=== PATIENT | female | born 1940 | race Two or more races ===

== ENCOUNTER 2021-08-01 09:30 | Emergency (ER) | payer MEDICARE ==
[~2021-08-01] VITALS: Ht 152.4 cm; Wt 68.9 kg
--- NOTE | 2021-08-01 09:32 | NUR ---
AT BEDSIDE FOR EVAL.
--- NOTE | 2021-08-01 09:35 | NUR ---
[id number] FOR NOTED AMS. 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 BG 170 IN THE FIELD. ATTACHED TO THE MONITOR. WILL CONTINUE TO MONITOR THE PATIENT.
--- NOTE | 2021-08-01 09:35 | NUR ---
IV LINE ESTABLISHED BLOOD DRAWN AND SENT TO LAB.
--- NOTE | 2021-08-01 09:36 | NUR ---
BLOOD SUGAR 178
--- NOTE | 2021-08-01 09:41 | NUR ---
PT IS WHEELED TO CT SCAN VIA STROKE PROTOCOL
--- NOTE | 2021-08-01 09:53 | NUR ---
DR. GODWIN, [facility] ON THE PHONE WITH DR. BEYER.
[2021-08-01] MEDS ORDERED: IV NS 0.9% 1,000 ML BAG IV ONE (10:00)
[2021-08-01 10:01] LABS: BASOPHILS # (AUTO) 0.2 K/uL (0.0-0.2); EOSINOPHILS % (AUTO) 0.7 % (0.0-6.0); HEMATOCRIT 38 % (33-45); HEMOGLOBIN 12.1 g/dL (11.5-14.8); LYMPHOCYTES # (AUTO) 2.1 K/uL (0.8-4.8); LYMPHOCYTES % (AUTO) 21.6 % (20.0-44.0); MEAN CORPUSCULAR HGB CONC 32 g/dl (31.0-36.0); MEAN CORPUSCULAR VOLUME 89 fL (82-100); MONOCYTES # (AUTO) 0.9 K/uL (0.1-1.30); MONOCYTES % (AUTO) 9.5 % (2.0-12.0); NEUTROPHILS # (AUTO) 6.6 K/uL (1.8-8.9); NEUTROPHILS % (AUTO) 66.2 % (43.0-81.0); PLATELET COUNT (AUTO) 134 K/uL (150-450); RED BLOOD CELL COUNT(AUTO) 4.28 MIL/uL (4.0-5.2); WHITE BLOOD COUNT (AUTO) 9.9 K/uL (4.3-11.0)
--- NOTE | 2021-08-01 10:02 | NUR ---
SPOKE TO [facility] NURSING SECURITY SITE SUPERVISOR REGARDING PATIENT. STATES PT'S LAST KNOWN WELL TIME WAS 0900 S/P BOWEL MOVEMENT. DR BEYER MADE AWARE.
[2021-08-01] MEDS ORDERED: MULT-439 PO (10:03)
[2021-08-01] MEDS ORDERED: ALEN70TA80 PO (10:03)
[2021-08-01] MEDS ORDERED: SITA100T PO (10:03)
[2021-08-01] MEDS ORDERED: ASCO500T20 PO (10:03)
[2021-08-01] MEDS ORDERED: FLUT1BLS15 IH (10:03)
[2021-08-01] MEDS ORDERED: GLIP10TA11 PO (10:03)
[2021-08-01] MEDS ORDERED: CHOL200013 PO (10:03)
[2021-08-01] MEDS ORDERED: INSU100C10 SQ (10:03)
[2021-08-01] MEDS ORDERED: LOVA10TA PO (10:03)
[2021-08-01] MEDS ORDERED: ATEN50TA PO (10:03)
[2021-08-01] MEDS ORDERED: CRAN400C PO (10:03)
[2021-08-01] MEDS ORDERED: MAGN400O6 PO (10:03)
[2021-08-01] MEDS ORDERED: EXEN2AUT SQ (10:03)
[2021-08-01] MEDS ORDERED: LACT1CAP61 PO (10:03)
[2021-08-01] MEDS ORDERED: LEVO500T90 PO (10:03)
[2021-08-01] MEDS ORDERED: ASPI-1169 PO (10:03)
[2021-08-01] MEDS ORDERED: MONT10TA22 PO (10:03)
[2021-08-01] MEDS ORDERED: PANT40TA2 PO (10:03)
[2021-08-01] MEDS ORDERED: PREG50CA PO (10:03)
[2021-08-01] MEDS ORDERED: CARB1TAB21 PO (10:03)
[2021-08-01] MEDS ORDERED: OXYB5TAB16 PO (10:03)
[2021-08-01] MEDS ORDERED: METF-442 PO (10:03)
[2021-08-01] MEDS ORDERED: CRAN3875 PO (10:03)
[2021-08-01] MEDS ORDERED: MEMA10TA PO (10:03)
[2021-08-01] MEDS ORDERED: OLOP2.5D12 EACHEYE (10:03)
[2021-08-01] MEDS: ALTEPLASE 100 MG in WATER FOR INJECTION,STERILE 100 ML IV ONE ×2 (10:11→10:30)
--- NOTE | 2021-08-01 10:11 | NUR ---
TPA STARTED ORDER BY RECOMMENDED BY .
[2021-08-01 10:12] LABS: CALCIUM, SERUM 9.4 mg/dL (8.5-10.1); CARBON DIOXIDE 30 mmol/L (21-32); CHLORIDE 103 mmol/L (98-107); CREATININE 0.7 mg/dL (0.6-1.3); GLUCOSE 165 mg/dL (74-106); POTASSIUM 3.7 mmol/L (3.5-5.1); SODIUM SERUM 142 mmol/L (136-145); UREA NITROGEN, BLOOD 10 mg/dL (7-18)
[2021-08-01] MEDS ORDERED: IOHEXOL-350 100 ML VIAL IV ONE (10:12)
[2021-08-01 10:18] LABS: ALANINE AMINOTRANSFERASE 16 U/L (12-78); ALBUMIN 3.4 g/dL (3.4-5.0); ALKALINE PHOSPHATASE 58 U/L (46-116); ASPARTATE AMINOTRANSFERASE 11 U/L (15-37); BILIRUBIN,DIRECT 0.1 mg/dL (0.0-0.2); BILIRUBIN,TOTAL 0.3 mg/dL (0.2-1.0); TOTAL PROTEIN, SERUM 7.6 g/dL (6.4-8.2)
--- NOTE | 2021-08-01 10:29 | NUR ---
THE PATIENT IS BACK FROM [facility]
--- NOTE | 2021-08-01 10:29 | NUR ---
Yakov arzolayadira in ED - 08/01/21 at 1029 by BARBIE THE PATIENT IS BACK FROM CT
--- NOTE | 2021-08-01 10:30 | NUR ---
DR BEYER AT THE BEDSIDE FOR INTUBATION
--- NOTE | 2021-08-01 10:33 | NUR ---
140MG SUCCINYLCHOLINE IVP GIVEN ORDERED BY DR BEYER.
--- NOTE | 2021-08-01 10:33 | NUR ---
ETOMIDATE 20MG IVP GIVEN ORDERED BY DR BEYER.
--- NOTE | 2021-08-01 10:35 | NUR ---
RT NOTE: LATE ENTRY- PATIENT ORALLY INTUBATED BY WITH 7.5 ETT AND SECURED AT 24CM MID LIP LINE. BILATERAL BREATH SOUNDS NOTED. POSITIVE COLOR CHANGE. PATIENT PLACED ON MECHANICAL VENT PER MD ORDERS. SUCTIONED LARGE AMOUNT OF THICK WHITE SECRETIONS. AMBU BAG AT [facility].
--- NOTE | 2021-08-01 10:35 | NUR ---
INTUBATION DONE BY . ET SIZE 7.5 24CC AT THE LIP, POSITIVE COLOR CHANGED AND POSITIVE EQUAL CHEST RISE.
--- NOTE | 2021-08-01 10:43 | NUR ---
HODAN KIM ON THE PHONE WITH DR. BEYER.
[2021-08-01] MEDS ORDERED: PROPOFOL 100 ML ONE (10:46)
[2021-08-01] MEDS ORDERED: SUCCINYLCHOLINE CHLORIDE 20 MG/ML VIAL IV ONE (11:00)
[2021-08-01] MEDS ORDERED: ETOMIDATE 2 MG/ML VIAL IV ONE (11:00)
[2021-08-01] MEDS ORDERED: PROPOFOL 100 ML IV PRN (11:00)
--- NOTE | 2021-08-01 11:13 | NUR ---
REPORT GIVEN TO TRIXIE FROM [facility] TEAM TRANSPORT
[2021-08-01 11:19] VITALS: BP 154/95
--- NOTE | 2021-08-01 11:28 | NUR ---
RT NOTE: PATIENT'S ETT PULLED OUT 1CM AND SECURED AT 23 CM MID LIP LINE PER . NURSE SHANTI NOTIFIED.
[2021-08-01 11:33] LABS: BILIRUBIN,URINE Negative (NEGATIVE); COLOR,URINE YELLOW (YELLOW); LEUKOCYTE ESTERASE ,URINE Negative (NEGATIVE); NITRITE, URINE Negative (NEGATIVE); PROTEIN,URINE Negative (NEGATIVE); UGLUCOSE Negative (NEGATIVE); UROBILINOGEN,URINE 0.2 EU/dL (0.2)
--- NOTE | 2021-08-01 11:41 | NUR ---
RECEIVING DR IS DR KUAR
--- NOTE | 2021-08-01 11:41 | NUR ---
[facility] TEAM TRANSPORT AT THE BEDSIDE AND REPORT GIVEN
--- NOTE | 2021-08-01 11:49 | NUR ---
THE PATIENT IS TRANSFERED TO [facility] VIA [facility]ED TRANSPO
[2021-08-01 11:53] LABS: ABG BASE EXCESS 2.1 mmol/L; ABG PCO2 46.3 mmHg (35.0-45.0); ABG PH 7.393 (7.350-7.450); ABG PO2 60.5 mmHg (75.0-100.0); MetHb 0.1 % (0.0-1.5); O2Hb 89.1 % (94.0-97.0); PEEP,BG 5 cm H2O; SITE, ABG Right Brachial; VT, ABG 450 mL
== END 2021-08-01 11:52 | disposition short-term general hospital (02) ==
LOC: ER 09:34
DX: I63.22 Cerebral infarction due to unspecified occlusion or stenosis of basilar artery (principal); R41.89 Other symptoms and signs involving cognitive functions and awareness; R29.727 NIHSS score 27; I26.99 Other pulmonary embolism without acute cor pulmonale; Z20.822 Contact with and (suspected) exposure to COVID-19; G30.9 Alzheimer's disease, unspecified; F02.80 Dementia in other diseases classified elsewhere, unspecified severity, without behavioral disturbance, psychotic disturbance, mood disturbance, and anxiety; E11.9 Type 2 diabetes mellitus without complications; Z79.4 Long term (current) use of insulin; Z79.84 Long term (current) use of oral hypoglycemic drugs; Z79.899 Other long term (current) drug therapy; R03.0 Elevated blood-pressure reading, without diagnosis of hypertension
CPT/HCPCS: 31500; 36415; 36600; 70450; 70496; 70498; 71045 ×2; 80048; 80076; 81003; 82803; 82962; 83605; 84145; 84484; 85025; 85730; 87040 ×2; 87086; 87426; 93005; 96365; 99291; J2997; J3490; Q9967; C9803